=== PATIENT | male | born 1960 | race African-American/Black ===

== ENCOUNTER 2022-02-06 09:40 | Inpatient (IN) | payer MEDICAID ==
[~2022-02-06] VITALS: Ht 177.8 cm; Wt 89.8 kg
[2022-02-06] MEDS ORDERED: ACETAMINOPHEN 325MG TABLET PO ONE (10:15)
[2022-02-06] MEDS ORDERED: ASPIRIN 81MG TABLET PO ONE (10:15)
[2022-02-06 10:32] LABS: HEMATOCRIT. 35.5 % (42.0-52.0); HEMOGLOBIN. 12.3 g/dL (14.0-18.0); MEAN CORPUSCULAR HEMOGLOBIN 31.7 pg (28.0-32.0); MEAN CORPUSCULAR VOLUME 91.2 fL (80.0-94.0); MEAN PLATELET VOLUME 7.9 fl (7.4-10.4); PLATELET 182 x1000/uL (130-400); RED BLOOD CELL COUNT 3.89 mill/uL (4.7-6.1); RED CELL DISTRIBUTION WIDTH 14.7 % (11.6-14.6)
[2022-02-06 10:39] LABS: CHLORIDE 100 mEq/L (98-107)
[2022-02-06 11:17] LABS: PLATELET ESTIMATE NORMAL
[2022-02-06 14:23] LABS: CLARITY URINE CLEAR (CLEAR); COLOR URINE DARK YELLOW (YELLOW); KETONES URINE TRACE (NEGATIVE); LEUKOCYTE ESTERASE URINE TRACE (NEGATIVE); NITRITE URINE NEGATIVE (NEGATIVE); OCCULT BLOOD URINE TRACE (NEGATIVE); PH URINE 5.5 (4.5-8.0); PROTEIN URINE 2+ (NEGATIVE); SPECIFIC GRAVITY URINE 1.033 (1.005-1.030)
[2022-02-06] MEDS ORDERED: ACETAMINOPHEN 325MG TABLET PO PRN (15:00)
[2022-02-06] MEDS ORDERED: MAGNESIUM/ALUMINUM HYDROXIDE/SIMETHICONE 30ML UDC PO PRN (15:00)
[2022-02-06] MEDS ORDERED: GUAIFENESIN 200MG/10ML SUGAR FREE UDC PO PRN (15:00)
[2022-02-06] MEDS ORDERED: NITROGLYCERIN 0.4MG TABLET SL SL PRN (15:00)
[2022-02-06] MEDS ORDERED: CLONIDINE 0.1MG TABLET PO PRN (15:00)
[2022-02-06] MEDS ORDERED: DOCUSATE SODIUM 100MG CAPSULE PO PRN (15:00)
[2022-02-06] MEDS ORDERED: IPRATROPIUM/ALBUTEROL 0.5-3(2.5)MG/3ML NEB NEB PRN (15:00)
[2022-02-06 15:25] LABS: INR 1.1
[2022-02-06] MEDS ORDERED: ENOXAPARIN 100MG/ML SYR SUBCUT SCH (15:30)
[2022-02-06] MEDS: ONDANSETRON HCL 4MG/2ML INJ IV PRN (15:33)
[2022-02-06] MEDS ORDERED: POTASSIUM CHLORIDE 20MEQ TABLET SR PO NR (15:45)
[2022-02-06] MEDS: ACETAMINOPHEN 325MG TABLET PO PRN (15:57)
[2022-02-06 16:22] VITALS: BP 127/76
[2022-02-06 16:24] VITALS: BP 127/76
[2022-02-06 16:28] LABS: *AMPHETAMINES SCREEN URINE NEGATIVE (NEGATIVE); *BARBITURATES SCREEN URINE NEGATIVE (NEGATIVE); *BENZODIAZEPINES SCREEN URINE NEGATIVE (NEGATIVE); *COCAINE SCREEN URINE NEGATIVE (NEGATIVE); CANNABINOID URINE SCREEN NEGATIVE (NEGATIVE); OPIATES URINE SCREEN NEGATIVE (NEGATIVE); PHENCYCLIDINE URINE SCREEN NEGATIVE (NEGATIVE)
[2022-02-06 16:33] LABS: METHADONE URINE SCREEN NEGATIVE (NEGATIVE)
[2022-02-06 18:34] LABS: ETHANOL BLOOD < 10 mg/dL; T4 FREE 1.04 ng/dL (0.76-1.46); TOTAL IRON BINDING CAPACITY 354 ug/dL (250-450)
[2022-02-06 19:03] LABS: VITAMIN B12 SERUM 305 pg/mL (211-911)
[2022-02-06 19:50] VITALS: BP 111/83
[2022-02-06] MEDS ORDERED: ZOLPIDEM TARTRATE 5MG TABLET PO PRN (21:00)
[2022-02-06] MEDS: FAMOTIDINE 20MG TABLET PO SCH (21:30)
[2022-02-07 00:29] VITALS: BP 110/76
[2022-02-07] MEDS: KETOROLAC 15MG/ML VIAL IV PRN ×2 (02:27→11:34)
[2022-02-07 04:24] VITALS: BP 105/78
[2022-02-07 07:32] LABS: HEMATOCRIT 36.3 % (42.0-52.0); HEMOGLOBIN 12.5 g/dL (14.0-18.0); MEAN CORPUSCULAR HEMOGLOBIN 32.2 pg (28.0-32.0); MEAN CORPUSCULAR VOLUME 93.1 fL (80.0-94.0); PLATELET 151 x1000/uL (130-400); RED CELL DISTRIBUTION WIDTH 14.7 % (11.6-14.6)
[2022-02-07 08:00] VITALS: BP 120/73
[2022-02-07] MEDS: ASPIRIN 325MG EC TABLET PO SCH (08:24)
[2022-02-07] MEDS: FAMOTIDINE 20MG TABLET PO SCH ×2 (08:24→20:47)
[2022-02-07] MEDS: ENOXAPARIN 100MG/ML SYR SUBCUT SCH ×2 (08:25→20:47)
[2022-02-07 10:42] LABS: CHLORIDE 101 mEq/L (98-107)
[2022-02-07] MEDS: FUROSEMIDE 20MG TABLET PO SCH (11:28)
[2022-02-07 12:00] VITALS: BP 129/55
[2022-02-07 16:00] VITALS: BP 103/66
[2022-02-07 17:49] LABS: *AMPHETAMINES SCREEN URINE NEGATIVE (NEGATIVE); *BARBITURATES SCREEN URINE NEGATIVE (NEGATIVE); *BENZODIAZEPINES SCREEN URINE NEGATIVE (NEGATIVE); *COCAINE SCREEN URINE NEGATIVE (NEGATIVE); CANNABINOID URINE SCREEN NEGATIVE (NEGATIVE); METHADONE URINE SCREEN NEGATIVE (NEGATIVE); OPIATES URINE SCREEN NEGATIVE (NEGATIVE); PHENCYCLIDINE URINE SCREEN NEGATIVE (NEGATIVE)
[2022-02-07] MEDS: ONDANSETRON HCL 4MG/2ML INJ IV PRN (18:17)
[2022-02-07] MEDS: ACETAMINOPHEN 325MG TABLET PO PRN (18:17)
[2022-02-07 20:00] VITALS: BP 108/68
[2022-02-08] VITALS: BP 98/68
[2022-02-08 04:00] VITALS: BP 101/64
[2022-02-08 07:15] LABS: HEMATOCRIT 35.8 % (42.0-52.0); HEMOGLOBIN 12.2 g/dL (14.0-18.0); MEAN CORPUSCULAR HEMOGLOBIN 31.7 pg (28.0-32.0); MEAN CORPUSCULAR VOLUME 93.1 fL (80.0-94.0); PLATELET 191 x1000/uL (130-400); RED BLOOD CELL COUNT 3.84 mill/uL (4.7-6.1); RED CELL DISTRIBUTION WIDTH 14.3 % (11.6-14.6)
[2022-02-08 07:48] LABS: CHLORIDE 100 mEq/L (98-107)
[2022-02-08 08:00] VITALS: BP 126/73
[2022-02-08] MEDS ORDERED: METOPROLOL TARTRATE 25MG TABLET PO SCH (09:00)
[2022-02-08] MEDS: ENOXAPARIN 100MG/ML SYR SUBCUT SCH (09:35)
[2022-02-08] MEDS: FAMOTIDINE 20MG TABLET PO SCH (09:35)
[2022-02-08] MEDS: KETOROLAC 15MG/ML VIAL IV PRN (09:35)
[2022-02-08] MEDS: ASPIRIN 325MG EC TABLET PO SCH (09:36)
[2022-02-08] MEDS: FUROSEMIDE 20MG TABLET PO SCH (09:38)
[2022-02-08 12:12] VITALS: BP 125/72
== END 2022-02-08 12:37 | disposition home or self-care (01) | DRG 720 ==
LOC: ER 09:40 → EDBEDREQTM 12:24 → EDBEDREQ 12:24 → 3WST 15:42
PROVIDERS: ADMIT Internal Medicine; ATTEND Internal Medicine
DX: A41.9 Sepsis, unspecified organism (principal); I21.4 Non-ST elevation (NSTEMI) myocardial infarction; I50.33 Acute on chronic diastolic (congestive) heart failure; E87.1 Hypo-osmolality and hyponatremia; I11.0 Hypertensive heart disease with heart failure; E87.6 Hypokalemia; F17.210 Nicotine dependence, cigarettes, uncomplicated; Z20.822 Contact with and (suspected) exposure to COVID-19
CPT/HCPCS: 36415; 71045; 80048; 80053; 80061; 80305; 80320; 81003; 82607; 82746; 83036; 83520; 83540; 83550; 83880; 84145; 84439; 84443; 84484; 85025; 85027; 87426; 87804; 93005; 93306; 93970; 99291; J1650; J1885; J2405; G0480

== ENCOUNTER 2022-03-05 18:41 | Emergency (ER) | payer MEDICAID ==
[~2022-03-05] VITALS: Ht 177.8 cm; Wt 91.0 kg
[2022-03-05 19:07] VITALS: BP 151/87
[2022-03-05] MEDS ORDERED: AMLO5TAB4 PO (19:09)
[2022-03-05] MEDS ORDERED: TRAZ-251 PO (19:09)
[2022-03-05] MEDS ORDERED: BUPR1FIL SL (19:09)
[2022-03-05] MEDS ORDERED: FAMO-287 PO (19:09)
[2022-03-05] MEDS ORDERED: ATOR20TA65 PO (19:09)
[2022-03-05] MEDS ORDERED: SERT20OR6 PO (19:10)
[2022-03-05 23:53] LABS: BASOPHILS % 0.8 % (0.0-2.0); EOSINOPHILS % 2.9 % (0.0-5.0); HEMATOCRIT. 35.6 % (42.0-52.0); HEMOGLOBIN. 12.3 g/dL (14.0-18.0); LYMPHOCYTES % 35.2 % (20.0-50.0); MEAN CORPUSCULAR HEMOGLOBIN 31.9 pg (28.0-32.0); MEAN CORPUSCULAR VOLUME 92.2 fL (80.0-94.0); MEAN PLATELET VOLUME 7.6 fl (7.4-10.4); MONOCYTES % 11.2 % (2.0-8.0); NEUTROPHILS % 49.9 % (40.0-76.0); PLATELET 220 x1000/uL (130-400); RED BLOOD CELL COUNT 3.86 mill/uL (4.7-6.1); RED CELL DISTRIBUTION WIDTH 14.8 % (11.6-14.6)
[2022-03-06 00:03] LABS: CHLORIDE 106 mEq/L (98-107)
[2022-03-06] MEDS ORDERED: HYDR12.54 MT (00:13)
== END 2022-03-06 00:50 | disposition home or self-care (01) ==
LOC: ER 18:52
DX: R60.0 Localized edema (principal); I10 Essential (primary) hypertension; F32.A Depression, unspecified; E78.00 Pure hypercholesterolemia, unspecified
CPT/HCPCS: 36415; 80048; 85025; 93971; 99284

== ENCOUNTER 2022-03-22 19:21 | Emergency (ER) | payer MEDICAID ==
[~2022-03-22] VITALS: Ht 177.8 cm; Wt 93.0 kg
[~2022-03-22 19:21] MED LIST: AMLO5TAB4 PO; ATOR20TA65 PO; BUPR1FIL SL; FAMO-287 PO; HYDR12.54 MT; SERT20OR6 PO; TRAZ-251 PO
[2022-03-23 03:03] LABS: BASOPHILS % 0.7 % (0.0-2.0); EOSINOPHILS % 3.1 % (0.0-5.0); HEMATOCRIT. 35.2 % (42.0-52.0); HEMOGLOBIN. 12.1 g/dL (14.0-18.0); MEAN CORPUSCULAR HEMOGLOBIN 31.8 pg (28.0-32.0); MEAN CORPUSCULAR VOLUME 92.5 fL (80.0-94.0); MEAN PLATELET VOLUME 7.5 fl (7.4-10.4); MONOCYTES % 11.1 % (2.0-8.0); NEUTROPHILS % 44.1 % (40.0-76.0); PLATELET 254 x1000/uL (130-400); RED BLOOD CELL COUNT 3.81 mill/uL (4.7-6.1); RED CELL DISTRIBUTION WIDTH 14.2 % (11.6-14.6)
[2022-03-23 03:12] LABS: CHLORIDE 104 mEq/L (98-107)
[2022-03-23] MEDS ORDERED: ACET-2708 MT (04:00)
[2022-03-23] MEDS ORDERED: ACETAMINOPHEN 325MG TABLET PO ONE (04:15)
[2022-03-23] MEDS ORDERED: ONDANSETRON 4MG ODT PO ONE (04:15)
[2022-03-23 04:35] VITALS: BP 124/65
== END 2022-03-23 04:20 | disposition home or self-care (01) ==
LOC: ER 19:21
DX: I87.8 Other specified disorders of veins (principal); F32.9 Major depressive disorder, single episode, unspecified; E78.00 Pure hypercholesterolemia, unspecified; I10 Essential (primary) hypertension
CPT/HCPCS: 36415; 80053; 83880; 85025; 93005; 99284; Q0162

== ENCOUNTER 2022-04-16 14:27 | Emergency (ER) | payer MEDICAID ==
[~2022-04-16] VITALS: Ht 177.8 cm; Wt 92.0 kg
[~2022-04-16 14:27] MED LIST changes: +ACET-2708 MT
[2022-04-16 14:33] VITALS: BP 170/79
[2022-04-16] MEDS ORDERED: RIVAROXABAN 15 MG TABLET PO SCH (17:00)
== END 2022-04-16 18:02 | disposition home or self-care (01) ==
LOC: ER 14:27
DX: Z76.0 Encounter for issue of repeat prescription (principal); Z00.00 Encounter for general adult medical examination without abnormal findings; F32.9 Major depressive disorder, single episode, unspecified; E78.00 Pure hypercholesterolemia, unspecified; I10 Essential (primary) hypertension; Z79.899 Other long term (current) drug therapy
CPT/HCPCS: 99283; Z7610